=== PATIENT | male | born 1960 | race Two or more races ===

== ENCOUNTER 2023-01-22 08:09 | Day surgery (SDC) | payer OTHER ==
[2023-01-18 15:39] LABS: CLARITY,URINE CLEAR (Clear); COLOR,URINE YELLOW (Yellow); GLUCOSE, URINE NEGATIVE (Neg); KETONES,URINE NEGATIVE (Neg); LEUKOCYTE ESTERASE ,URINE NEGATIVE (Neg); NITRITES, URINE NEGATIVE (Neg); OCCULT BLOOD,URINE NEGATIVE (Neg); PROTEIN,URINE NEGATIVE (Neg); UROBILINOGEN,URINE 0.2 E.U/dL (0.2-1.0)
[2023-01-18 15:40] LABS: BASOPHILS % (AUTO) 0.6 % (0-1); EOSINOPHILS # (AUTO) 0.4 X10'3 (0-0.9); LYMPHOCYTES # (AUTO) 1.5 X10'3 (1.1-4.8); LYMPHOCYTES % (AUTO) 34.6 % (21-51); MEAN CORPUSCULAR HEMOGLOBIN 30.7 PG (27.0-31.0); MEAN CORPUSCULAR VOLUME 90.2 FL (78-98); MEAN PLATELET VOLUME 9.2 FL (7.4-10.4); MONOCYTES # (AUTO) 0.5 X10'3 (0-0.9); MONOCYTES % (AUTO) 11.7 % (2-12); NEUTROPHILS % (AUTO) 45.1 % (42-75); PRE OP HEMATOCRIT 46.4 % (42.0-52.0); PRE OP HEMOGLOBIN 15.8 g/dL (14.0-17.9); PRE OP PLATELET COUNT 210 X10'3 (140-440); RED BLOOD COUNT 5.15 X10'6 (4.70-6.10); RED CELL DISTRIBUTION WIDTH 12.8 % (11.5-14.5)
[2023-01-18 15:41] LABS: UA COLLECTION TYPE CLN CATCH MIDSTREAM
[2023-01-18 15:47] LABS: ALBUMIN/GLOBULIN RATIO 1.2 (1.1-1.5); ALKALINE PHOSPHATASE 39 IU/L (46-116); BLOOD UREA NITROGEN 21 MG/DL (7-18); BUN/CREATININE RATIO 21.9 (10.0-20.0); CALCIUM 9.1 MG/DL (8.5-10.1); CHLORIDE 105 MMOL/L (99-107); CREATININE 0.96 MG/DL (0.60-1.10); PRE OP ALT 30 U/L (30-65); PRE OP ANION GAP 2 (8-16); PRE OP AST 24 U/L (10-37); PRE OP BILIRUB, TOTAL 0.3 MG/DL (0.0-1.0); PRE OP GLUCOSE 97 MG/DL (70-104); PRE OP POTASSIUM 4.1 MMOL/L (3.4-5.1); PRE OP SODIUM 138 MMOL/L (135-145); TOTAL CARBON DIOXIDE 31.4 MMOL/L (24-32); TOTAL PROTEIN 7.4 G/DL (6.4-8.2); eGFR 80 ML/MIN
[2023-01-22] VITALS (10 sets, daily range): BP systolic 119–136; BP diastolic 72–82
[~2023-01-22] VITALS: Ht 188 cm; Wt 94.9 kg
[~2023-01-22 08:09] MED LIST: BIMA2.5D EACHEYE; DORZ10DR10 EACHEYE; cefazolin 2gm/D5W 100mL 100 ML IV ONE; famotidine 20mg tablet PO ONE; ringers solution, lacted 1,000 ML IV SCH; tranexamic acid inj. 1,000 MG in normal saline IV soln 100ML IV ONE
[2023-01-22] MEDS ORDERED: bacitracin 15gm ointment TP ONE (09:02)
[2023-01-22] MEDS ORDERED: BUPIVAcaine/PF 2.5 mg/ml (0.25%) 30ml vial ONE (09:08)
[2023-01-22] MEDS ORDERED: sevoflurane 250ml liquid IH ONE (11:22)
[2023-01-22] MEDS ORDERED: ondansetron/PF 4mg/2ml inj ONE (11:22)
[2023-01-22] MEDS ORDERED: midazolam 1 mg/ML 2ml injection ONE (11:25)
[2023-01-22] MEDS ORDERED: fentaNYL/PF 50MCG/1 ML 2ML syringe ONE (11:25)
[2023-01-22] MEDS ORDERED: ROPIVAcaine 0.5% (5mg/ml) 30ml vial ONE ×2 (11:25)
[2023-01-22] MEDS ORDERED: dexamethasone sod phosphate 4mg/ml inj. ONE (11:47)
[2023-01-22] MEDS ORDERED: LIDOcaine 2% (20mg/ml) 5ml vial ONE (11:48)
[2023-01-22] MEDS ORDERED: propofol inj 20 ML IV ONE (11:48)
[2023-01-22] MEDS ORDERED: ringers solution, lacted 1,000 ML IV SCH (12:10)
[2023-01-22] MEDS ORDERED: morphine 4 MG/ML inj SYRINge IV PRN (12:10)
[2023-01-22] MEDS ORDERED: hydrALAZINE 20mg/ml inj. IV PRN (12:10)
[2023-01-22] MEDS ORDERED: morphine 2 MG/ML inj. syringe IV PRN (12:10)
[2023-01-22] MEDS ORDERED: meperidine/PF 25mg/ml syringe IV PRN ×2 (12:10)
[2023-01-22] MEDS ORDERED: ondansetron/PF 4mg/2ml inj IV PRN (12:10)
[2023-01-22] MEDS ORDERED: enalaprilat dihydrate 2.5mg/2ml vial IV PRN (12:10)
--- NOTE | 2023-01-22 13:05 | NUR ---
Received from OR via BED, accompanied by Anesthesiologist and report given by Anesthesiologist. PATIENT WAKING UP, NO S/S OF PAIN, V/S WNL, SCD ON, 20G TO RUE, RIGHT FOOT SPLINT AND SOLANGE WRAP DRESSING CDI. PATIENT GIVEN FOAM ELEVATOR FOR FOOT
--- NOTE | 2023-01-22 14:25 | NUR ---
PATIENT a&ox4, denies PAIN, V/S WNL, SCD Off, 20G TO RUE d/c, RIGHT FOOT SPLINT AND SOLANGE WRAP DRESSING CDI. PATIENT GIVEN FOAM ELEVATOR FOR FOOT. i have reviewed d/c instructions with patient and he has verbalized understanding. patient d/c home with all belongings and gave ride home.
== END 2023-01-22 14:25 | disposition home or self-care (01) ==
LOC: PAS 08:09
PROVIDERS: ATTEND Podiatrist Foot & Ankle Surgery
DX: S92.351A Displaced fracture of fifth metatarsal bone, right foot, initial encounter for closed fracture (principal); G89.18 Other acute postprocedural pain; Z79.82 Long term (current) use of aspirin; Z79.899 Other long term (current) drug therapy; Z98.890 Other specified postprocedural states; X58.XXXA Exposure to other specified factors, initial encounter; Y93.89 Activity, other specified; Y92.89 Other specified places as the place of occurrence of the external cause; Y99.8 Other external cause status
CPT/HCPCS: 28485; 36415; 64445; 64447; 73620; 80053; 81003; 82948; 85025; 93005; A6223; C1713; J0690; J1100; J2250; J2405; J2704; J2795; J3010; J3490; J7030; J7120; Z7506; Z7508; Z7512; 76000; A4215; A4618; A6253; A6449; A7000

== ENCOUNTER 2023-08-27 06:40 | Day surgery (SDC) | payer OTHER ==
[2023-08-23 16:31] LABS: BILIRUBIN,URINE NEGATIVE (Neg); CLARITY,URINE CLEAR (Clear); COLOR,URINE YELLOW (Yellow); GLUCOSE, URINE NEGATIVE (Neg); KETONES,URINE NEGATIVE (Neg); LEUKOCYTE ESTERASE ,URINE NEGATIVE (Neg); NITRITES, URINE NEGATIVE (Neg); OCCULT BLOOD,URINE NEGATIVE (Neg); PROTEIN,URINE NEGATIVE (Neg); UROBILINOGEN,URINE 0.2 E.U/dL (0.2-1.0)
[2023-08-23 16:32] LABS: BASOPHILS % (AUTO) 0.5 % (0-1); EOSINOPHILS # (AUTO) 0.3 X10'3 (0-0.9); EOSINOPHILS % (AUTO) 6.2 % (0-6); LYMPHOCYTES # (AUTO) 1.8 X10'3 (1.1-4.8); LYMPHOCYTES % (AUTO) 39.1 % (21-51); MEAN CORPUSCULAR HEMOGLOBIN 30.1 PG (27.0-31.0); MEAN CORPUSCULAR HGB CONC 33.4 g/dL (33.0-36.5); MEAN CORPUSCULAR VOLUME 90.2 FL (78-98); MEAN PLATELET VOLUME 8.7 FL (7.4-10.4); MONOCYTES # (AUTO) 0.5 X10'3 (0-0.9); MONOCYTES % (AUTO) 11.4 % (2-12); NEUTROPHILS % (AUTO) 42.8 % (42-75); PRE OP HEMATOCRIT 45.6 % (42.0-52.0); PRE OP HEMOGLOBIN 15.2 g/dL (14.0-17.9); PRE OP PLATELET COUNT 219 X10'3 (140-440); PRE OP WHITE BLOOD COUNT 4.6 10'3 (4.8-10.8); RED BLOOD COUNT 5.05 X10'6 (4.70-6.10); RED CELL DISTRIBUTION WIDTH 13.3 % (11.5-14.5)
[2023-08-23 16:34] LABS: UA COLLECTION TYPE CLN CATCH MIDSTREAM
[2023-08-23 16:48] LABS: ALBUMIN 3.8 G/DL (3.4-5.0); ALBUMIN/GLOBULIN RATIO 1.2 (1.1-1.5); ALKALINE PHOSPHATASE 41 IU/L (46-116); BLOOD UREA NITROGEN 22 MG/DL (7-18); BUN/CREATININE RATIO 19.8 (10.0-20.0); CALCIUM 9.1 MG/DL (8.5-10.1); CHLORIDE 102 MMOL/L (99-107); CREATININE 1.11 MG/DL (0.60-1.10); PRE OP ALT 26 U/L (30-65); PRE OP ANION GAP 8 (8-16); PRE OP AST 22 U/L (10-37); PRE OP BILIRUB, TOTAL 0.3 MG/DL (0.0-1.0); PRE OP GLUCOSE 89 MG/DL (70-104); PRE OP POTASSIUM 3.7 MMOL/L (3.4-5.1); PRE OP SODIUM 139 MMOL/L (135-145); TOTAL CARBON DIOXIDE 29.5 MMOL/L (24-32); TOTAL PROTEIN 7.1 G/DL (6.4-8.2); eGFR 68 ML/MIN
[~2023-08-27] VITALS: Ht 188 cm; Wt 96.5 kg
[2023-08-27] VITALS (11 sets, daily range): BP systolic 107–133; BP diastolic 66–85; PULSE 51–74; RESP 11–16; TEMP 97.3; O2SAT 95–100
[~2023-08-27 06:40] MED LIST changes: -tranexamic acid inj. 1,000 MG in normal saline IV soln 100ML IV ONE
[2023-08-27] MEDS ORDERED: sevoflurane 250ml liquid IH ONE (11:32)
[2023-08-27] MEDS ORDERED: fentaNYL/PF 50MCG/1 ML 2ML syringe ONE (11:37)
[2023-08-27] MEDS ORDERED: ondansetron/PF 4mg/2ml inj IV PRN (11:55)
[2023-08-27] MEDS ORDERED: morphine 2 MG/ML inj. syringe IV PRN (11:55)
[2023-08-27] MEDS ORDERED: morphine 4 MG/ML inj SYRINge IV PRN (11:55)
[2023-08-27] MEDS ORDERED: ringers solution, lacted 1,000 ML IV SCH (11:55)
[2023-08-27] MEDS ORDERED: meperidine/PF 25mg/ml syringe IV PRN ×3 (11:55)
[2023-08-27] MEDS ORDERED: proCHLORperazine 10 MG/2 ml inj IV PRN (11:55)
[2023-08-27] MEDS ORDERED: BUPIVAcaine 2.5mg/ml inj 50ml vial (contains preservative) ONE (12:00)
[2023-08-27] MEDS ORDERED: dexamethasone sod phosphate 4mg/ml inj. ONE (12:04)
[2023-08-27] MEDS ORDERED: LIDOcaine 2% (20mg/ml) 5ml vial ONE (12:04)
[2023-08-27] MEDS ORDERED: propofol inj 20 ML IV ONE (12:04)
[2023-08-27] MEDS ORDERED: rocuronium 10mg/ml inj IV ONE (12:04)
[2023-08-27] MEDS ORDERED: ondansetron/PF 4mg/2ml inj ONE (12:04)
[2023-08-27] MEDS ORDERED: BUPIVAcaine 0.25% w/Epi /PF 30ml vial IJ ONE (12:11)
[2023-08-27] MEDS ORDERED: glycopyrrolate 0.2mg/ml inj ONE (12:15)
[2023-08-27] MEDS ORDERED: neostigmine methylsulfate 1 MG/ML 10ml vial ONE (12:15)
[2023-08-27] MEDS ORDERED: bacitracin 15gm ointment TP ONE (12:16)
== END 2023-08-27 14:05 | disposition home or self-care (01) ==
LOC: PAS 06:40
PROVIDERS: ATTEND Podiatrist Foot & Ankle Surgery
DX: T84.84XA Pain due to internal orthopedic prosthetic devices, implants and grafts, initial encounter (principal); M19.90 Unspecified osteoarthritis, unspecified site; Z79.899 Other long term (current) drug therapy; Z79.82 Long term (current) use of aspirin; Z98.890 Other specified postprocedural states; Y83.8 Other surgical procedures as the cause of abnormal reaction of the patient, or of later complication, without mention of misadventure at the time of the procedure; Y92.89 Other specified places as the place of occurrence of the external cause
CPT/HCPCS: 20680; 36415; 73620; 80053; 81003; 82948; 85025; 93005; A6223; J0690; J1100; J2405; J2704; J2710; J3010; J3490; J7030; J7120; S0020; Z7506; Z7512; A4215; A4618; A6449; A7000